=== PATIENT | male | born 1985 | race Caucasian/White ===

== ENCOUNTER 2017-11-07 12:28 | Observation (INO) | payer OTHER ==
[~2017-11-07] VITALS: Ht 185.4 cm; Wt 90.0 kg
[2017-11-07] MEDS ORDERED: GADODIAMIDE PF 287 MG/ML 20 ML VIAL (for RAD MRI) IVCONTRAST ONE (12:29)
[2017-11-07 13:57] VITALS: BP 155/97; PULSE 104; RESP 18; TEMP 97.4; O2SAT 96
[2017-11-07] MEDS ORDERED: [UNRECOGNIZED DRUG - CODE] (14:18)
[2017-11-07 14:24] VITALS: BP 161/91; PULSE 95; RESP 21; O2SAT 97
[2017-11-07] MEDS ORDERED: MORPHINE SULFATE 4 MG/ML INJ IV PUSH ONE (14:30)
[2017-11-07] MEDS ORDERED: ONDANSETRON HCL 4 MG/2 ML VIAL IVP ONE (14:30)
[2017-11-07] MEDS ORDERED: SODIUM CHLOR 0.9% 1000 ML INJ 1,000 ML IV ONE (14:30)
[2017-11-07] MEDS ORDERED: SODIUM CHLORIDE 0.9% FLUSH 10 ML FLUSH IVF PRN (14:30)
--- NOTE | 2017-11-07 14:46 | PD ---
HPI Chief Complaint: Headache Time Seen by Provider: 14:19 Travel History International Travel<30 days: No Contact w/Intl Traveler<30days: No Traveled to known affect area: No History of Present Illness HPI Patient is 32-year-old male presenting to the emergency room for evaluation of a headache. Friend is at bedside and is giving history. He states that they have been driving for 22 hours to come [place]. Patient developed a headache approximately 4 hours ago. Patient states it is frontal, pounding in nature. He took between 10-16 ibuprofen over the last 4 hours, friend states he does not remember events that have occurred since the headaches started. Patient reported feeling dizzy and vomited once. Friend believes he fell and hit his nose. Patient had been fine prior to the headache starting. Patient states he has had headaches like this in the past, and normally ibuprofen alleviates it. Patient does state he recently within the last few days started Accutane PFSH Past Medical History Medical History: Denies Significant Hx Social History Alcohol Use: No Tobacco Use: No Substance Use: No Allergies-Medications (Allergen,Severity, Reaction): Coded Allergies: No Known Allergies (Unverified , 11/07/17) Reported Meds & Prescriptions Reported Meds & Active Scripts Active Reported Accucaine 1 % (Soixgoajc-Iotiajucbjtepmn-Thmm) 10 Mg/Ml (1 %) Inj Review of Systems Except as stated in HPI: all other systems reviewed are Neg Eyes: No: Photophobia, Visual changes HENT: Positive: Headaches, Nosebleed Cardiovascular: No: Chest Pain or Discomfort Respiratory: No: Shortness of Breath Gastrointestinal: Positive: Nausea, Vomiting, No: Abdominal Pain Musculoskeletal: No: Myalgias Neurologic: Positive: Dizziness, Headache, No: Focal Abnormalities, Slurred Speech Physical Exam Narrative GENERAL: Well-developed, well-nourished, alert male. Presenting in no acute distress. SKIN: Warm and dry. HEAD: Atraumatic. Normocephalic. EYES: Pupils equal and round. No scleral icterus. No injection or drainage. Extraocular movements are intact ENT: No nasal bleeding or discharge. Mucous membranes pink and moist. NECK: Trachea midline. No JVD. CARDIOVASCULAR: Mildly tachycardic. RESPIRATORY: No accessory muscle use. Clear to auscultation. Breath sounds equal bilaterally. GASTROINTESTINAL: Abdomen soft, non-tender, nondistended. Hepatic and splenic margins not palpable. MUSCULOSKELETAL: Extremities without clubbing, cyanosis, or edema. No obvious deformities. NEUROLOGICAL: Awake and alert oriented to self, time and place. No obvious cranial nerve deficits. Motor grossly within normal limits. Five out of 5 muscle strength in the arms and legs. Normal speech. PSYCHIATRIC: Appropriate mood and affect; insight and judgment normal. Data Data Last Documented VS Vital Signs Date Time Temp Pulse Resp B/P (MAP) Pulse Ox O2 Delivery O2 Flow Rate FiO2 11/07/17 18:54 103 19 147/90 (109) 98 Room Air 11/07/17 13:57 97.4 Orders Orders Prothrombin Time / Inr (Pt) (11/07/17 14:19) Act Partial Throm Time (Ptt) (11/07/17 14:19) Complete Blood Count With Diff (11/07/17 14:19) Comprehensive Metabolic Panel (11/07/17 14:19) Creatine Kinase (Cpk) (11/07/17 14:19) Ct Brain W/O Iv Contrast(Rout) (11/07/17 14:19) Ecg Monitoring (11/07/17 14:19) Iv Access Insert/Monitor (11/07/17 14:19) Oximetry (11/07/17 14:19) Blood Glucose (11/07/17 14:19) Morphine Inj (Morphine Inj) (11/07/17 14:30) Ondansetron Inj (Zofran Inj) (11/07/17 14:30) Sodium Chloride 0.9% Flush (Ns Flush) (11/07/17 14:30) Sodium Chlor 0.9% 1000 Ml Inj (Ns 1000 M (11/07/17 14:30) Ct Facial Bones W/O Iv Cont (11/07/17 ) Ct Cerv Spine W/O Contrast (11/07/17 ) Morphine Inj (Morphine Inj) (11/07/17 15:15) Mri Brain W&W/O Contrast (11/07/17 ) Dexamethasone Inj (Decadron Inj) (11/07/17 16:15) Morphine Inj (Morphine Inj) (11/07/17 16:15) Gadodiamide Pf Inj (Omniscan Pf Inj) (11/07/17 12:29) Alprazolam (Xanax) (11/07/17 19:00) Admit Order (Ed Use Only) (11/07/17 20:01) Labs Laboratory Tests Test 11/07/17 14:20 White Blood Count 11.6 TH/MM3 Red Blood Count 5.03 MIL/MM3 Hemoglobin 16.7 GM/DL Hematocrit 47.3 % Mean Corpuscular Volume 93.9 FL Mean Corpuscular Hemoglobin 33.2 PG Mean Corpuscular Hemoglobin Concent 35.4 % Red Cell Distribution Width 12.2 % Platelet Count 238 TH/MM3 Mean Platelet Volume 8.3 FL Neutrophils (%) (Auto) 73.7 % Lymphocytes (%) (Auto) 18.0 % Monocytes (%) (Auto) 7.0 % Eosinophils (%) (Auto) 0.3 % Basophils (%) (Auto) 1.0 % Neutrophils # (Auto) 8.5 TH/MM3 Lymphocytes # (Auto) 2.1 TH/MM3 Monocytes # (Auto) 0.8 TH/MM3 Eosinophils # (Auto) 0.0 TH/MM3 Basophils # (Auto) 0.1 TH/MM3 CBC Comment DIFF FINAL Differential Comment Prothrombin Time 10.0 SEC Prothromb Time International Ratio 1.0 RATIO Activated Partial Thromboplast Time 24.2 SEC Blood Urea Nitrogen 13 MG/DL Creatinine 1.00 MG/DL Random Glucose 117 MG/DL Total Protein 8.3 GM/DL Albumin 4.6 GM/DL Calcium Level 9.4 MG/DL Alkaline Phosphatase 60 U/L Aspartate Amino Transf (AST/SGOT) 31 U/L Alanine Aminotransferase (ALT/SGPT) 60 U/L Total Bilirubin 0.5 MG/DL Sodium Level 137 MEQ/L Potassium Level 3.7 MEQ/L Chloride Level 100 MEQ/L Carbon Dioxide Level 27.2 MEQ/L Anion Gap 10 MEQ/L Estimat Glomerular Filtration Rate 86 ML/MIN Total Creatine Kinase 178 U/L [facility] Medical Decision Making Medical Screen Exam Complete: Yes Emergency Medical Condition: Yes Interpretation(s) Vital Signs Date Time Temp Pulse Resp B/P (MAP) Pulse Ox O2 Delivery O2 Flow Rate FiO2 11/07/17 14:24 95 21 161/91 (114) 97 Room Air 11/07/17 13:57 97.4 104 18 155/97 (116) 96 Differential Diagnosis Headache versus hemorrhage versus metabolic abnormality versus medication side effect versus mass versus other Narrative Course Patient is well-appearing 32-year-old male presented for evaluation of a headache that started 4 hours prior to arrival. Patient denies any significant past medical history but states he started Accutane recently. Patient's vital signs are stable. Labs and imaging ordered and pending. CBC with a white count of 11.6 with slight left shift Chemistry with no acute findings CT scan of the head shows ill-defined hypodensity and mass-effect at the medial frontal lobes extending into the corpus callosum and crossing the genu of the corpus callosum. Mass-effect on the lateral ventricles and effacement of the basal cisterns. Findings are suspicious for primary intracranial neoplasm such as a glioblastoma or primary [employer] lymphoma. Less likely possibility would be a tumefactive demyelinating disorder. MRI of brain with and without contrast is recommended, this has been ordered. Patient has been made aware of findings and current treatment plan. Decadron 10 mg IV ordered. Findings were discussed with my attending physician. MRI which is read by the radiologist shows mildly enhancing mass in both frontal lobes, larger on the right measuring 3.8 cm and up to 1.6 cm on the left. The mass extends across the corpus callosum which is markedly thickened and edematous and there is surrounding vasogenic edema more severe on the right side. There is effacement of the lateral ventricles and mild ventricular enlargement. 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 Other etiologies are not excluded. Findings were also reviewed by my attending physician who informed patient of findings. Neurosurgery has been paged. Dr. Shields evaluated patient and discussed findings with him and room. Patient is agreeable to overnight stay. Admit orders placed. Patient reports improvement in his symptoms after administration of Decadron and morphine. He was given Xanax after he was initially notified of the test results as he appeared very anxious and tearful. He is currently resting comfortably, his friends are at the bedside. His is on her way back from a cruise. Diagnosis Primary Impression: Brain tumor Admitting Information Admitting Physician Requests: Observation Condition: Stable [facility] Nov 07, 2017 14:46
[2017-11-07] MEDS ORDERED: MORPHINE SULFATE 2 MG/ML INJ IV PUSH ONE ×2 (15:15→16:15)
[2017-11-07 15:21] LABS: AUTOMATED NEUTROPHIL # 8.5 TH/MM3 (1.8-7.7); BASOPHIL # 0.1 TH/MM3 (0-0.2); EOSINOPHIL % 0.3 % (0.0-4.0); HEMATOCRIT 47.3 % (39.0-51.0); HEMOGLOBIN 16.7 GM/DL (13.0-17.0); LYMPHOCYTE # 2.1 TH/MM3 (1.0-4.8); MEAN CELL VOLUME 93.9 FL (80.0-100.0); MEAN CORPUSCULAR HEMOGLOBIN 33.2 PG (27.0-34.0); MEAN CORPUSCULAR HGB CONC 35.4 % (32.0-36.0); MEAN PLATELET VOLUME 8.3 FL (7.0-11.0); MONOCYTE # 0.8 TH/MM3 (0-0.9); NEUT % 73.7 % (16.0-70.0); PLATELET COUNT 238 TH/MM3 (150-450); RED BLOOD COUNT 5.03 MIL/MM3 (4.50-5.90); RED CELL DISTRIBUTION WIDTH 12.2 % (11.6-17.2); WHITE BLOOD COUNT 11.6 TH/MM3 (4.0-11.0)
[2017-11-07 15:45] LABS: ALKALINE PHOSPHATASE 60 U/L (45-117); TOTAL BILIRUBIN ADULT 0.5 MG/DL (0.2-1.0); TOTAL PROTEIN 8.3 GM/DL (6.4-8.2)
[2017-11-07 15:48] LABS: ALBUMIN 4.6 GM/DL (3.4-5.0); ALT (GPT) 60 U/L (12-78); AST (GOT) 31 U/L (15-37); BICARBONATE 27.2 MEQ/L (21.0-32.0); BLOOD UREA NITROGEN 13 MG/DL (7-18); CALCIUM 9.4 MG/DL (8.5-10.1); CHLORIDE 100 MEQ/L (98-107); GLOMERULAR FILTRATION RATE 86 ML/MIN (>89); GLUCOSE,RANDOM 117 MG/DL (74-106); SODIUM (NA) 137 MEQ/L (136-145)
--- NOTE | 2017-11-07 16:12 | RADRPT ---
EXAM DATE/TIME: 11/07/2017 15:41 [facility] COMPARISON: CT FACIAL BONES W/O CONTRAST, November 07, 2017, 15:41. INDICATIONS : Cephalgia; no injury. RADIATION DOSE: 56.35 CTDIvol (mGy) MEDICAL HISTORY : None SURGICAL HISTORY : None. ENCOUNTER: Initial ACUITY: 1 day PAIN SCALE: 8/10 LOCATION: cranial TECHNIQUE: Multiple contiguous axial images were obtained of the head. Using automated exposure control and adj ustment of the mA and/or kV according to patient size, radiation dose was kept as low as reasonably a chievable to obtain optimal diagnostic quality images. DICOM format image data is available electro nically for review and comparison. FINDINGS: CEREBRUM: There is hypodensity and mass effect centered at the body of the corpus callosum extending into the f rontal lobes bilaterally. Mass effect on the lateral ventricles is seen. Mild right to left midline s hift measuring 5-6 mm. No evidence of acute intracranial hemorrhage or extra-axial fluid collection. There is effacement of the basal cisterns. POSTERIOR FOSSA: The cerebellum and brainstem are intact. The 4th ventricle is midline. The cerebellopontine angle i s unremarkable. EXTRACRANIAL: The visualized portion of the orbits is intact. SKULL: The calvaria is intact. No evidence of skull fracture. CONCLUSION: Ill-defined hypodensity and mass effect at the medial frontal lobes extending into the corpus callosu m and crossing the genu of the corpus callosum. Mass effect on the lateral ventricles and effacement of the basal cisterns. Findings are suspicious for primary intracranial neoplasm such as glioblastoma or primary [employer] lymphoma. Less likely possibility would be tumefactive demyelinating disorder. MRI br ain with and without contrast is recommended. Mike Goins MD on November 07, 2017 at 15:58 Board Certified Radiologist. This report was verified electronically.
--- NOTE | 2017-11-07 16:13 | RADRPT ---
EXAM DATE/TIME: 11/07/2017 15:41 [facility] COMPARISON: CT BRAIN W/O CONTRAST, November 07, 2017, 15:41. INDICATIONS : Cephalgia; no injury. RADIATION DOSE: 26.35 CTDIvol (mGy) MEDICAL HISTORY : None SURGICAL HISTORY : None. ENCOUNTER: Initial ACUITY: 1 day PAIN SCORE: 5/10 LOCATION: Bilateral facial TECHNIQUE: Volumetric scanning of the facial bones was performed. Using automated exposure control and adjustme nt of the mA and/or kV according to patient size, radiation dose was kept as low as reasonably achiev able to obtain optimal diagnostic quality images. DICOM format image data is available electronicRosum y for review and comparison. FINDINGS: ORBITS: The orbital and infraorbital osseous structures are intact. The retroconal structures have a normal configuration. No radiopaque foreign bodies are seen. NASAL BONE: The nasal bone and maxillary spine are intact ZYGOMATIC ARCHES: Symmetric without evidence of fracture. SINUSES: The maxillary, ethmoid and frontal sinuses are intact. No air-fluid levels seen. NASAL CAVITY: The nasal septum is intact and midline. The lacrimal ducts are intact. SOFT TISSUES: No radiopaque foreign bodies seen. No soft-tissue swelling is seen. INTRACRANIAL: No intracranial air seen. CRIBIFORM PLATE: Grossly intact. CONCLUSION: Facial bones CT within normal limits. Mike Goins MD on November 07, 2017 at 16:10 Board Certified Radiologist. This report was verified electronically.
[2017-11-07] MEDS ORDERED: DEXAMETHASONE SOD PHOS 20 MG/5 ML VIAL IV PUSH ONE (16:15)
--- NOTE | 2017-11-07 16:19 | RADRPT ---
EXAM DATE/TIME: 11/07/2017 15:41 [facility] COMPARISON: No previous studies available for comparison. INDICATIONS : Cephalgia; no injury. RADIATION DOSE: 28.62 CTDIvol (mGy) MEDICAL HISTORY : None SURGICAL HISTORY : None. ENCOUNTER: Initial ACUITY: 1 day PAIN SCALE: 0/10 LOCATION: Bilateral neck TECHNIQUE: Volumetric scanning of the cervical spine was performed. Multiplanar reconstructions in the sagittal, coronal and oblique axial planes were performed. Using automated exposure control and adjustment o f the mA and/or kV according to patient size, radiation dose was kept as low as reasonably achievable to obtain optimal diagnostic quality images. DICOM format image data is available electronically f or review and comparison. FINDINGS: VERTEBRAE: Normal vertebral body height. ALIGNMENT: No evidence of subluxation. C2-C3: The bony spinal canal is normal in size. No evidence of disc bulge or herniation. The neural forami na are bilaterally patent. C3-C4: The bony spinal canal is normal in size. No evidence of disc bulge or herniation. The neural forami na are bilaterally patent. C4-C5: The bony spinal canal is normal in size. No evidence of disc bulge or herniation. The neural forami na are bilaterally patent. C5-C6: The bony spinal canal is normal in size. No evidence of disc bulge or herniation. The neural forami na are bilaterally patent. C6-C7: The bony spinal canal is normal in size. No evidence of disc bulge or herniation. The neural forami na are bilaterally patent. C7-T1: The bony spinal canal is normal in size. No evidence of disc bulge or herniation. The neural forami na are bilaterally patent. CONCLUSION: Cervical spine CT within normal limits. Mike Goins MD on November 07, 2017 at 16:16 Board Certified Radiologist. This report was verified electronically.
--- NOTE | 2017-11-07 18:10 | RADRPT ---
EXAM DATE/TIME: 11/07/2017 17:28 [facility] COMPARISON: No previous studies available for comparison. INDICATIONS : Mass. Cephalgia. CONTRAST: 18 cc Omniscan (gadodiamide) IV MEDICAL HISTORY : None. SURGICAL HISTORY : None. ENCOUNTER: Initial ACUITY: 1 day PAIN SCORE: 0/10 LOCATION: cranial TECHNIQUE: Multiplanar, multisequence MRI of the brain was performed both prior to and following the administrat ion of paramagnetic contrast. FINDINGS: There is a mildly enhancing mass in the right frontal region medially measuring at least 3.8 cm in di ameter. There is surrounding vasogenic edema is also a small component of the mass that extends into the medial left frontal lobe measuring up to 1.6 cm in diameter likely via the markedly thickened cor pus callosum. Pattern is most characteristic of glioblastoma. There is effacement of both lateral kevon tricles and there is mild ventricular enlargement. No evidence for recent infarction. CONCLUSION: 1. Mildly enhancing mass in both frontal lobes, larger on the right side measuring up to 3.8 cm and u p to 1.6 cm on the left side. The mass extends across corpus callosum which is markedly thickened and edematous and there is surrounding vasogenic edema more severe on the right side. There is effacemen t of the lateral ventricles and mild ventricular enlargement. Findings most characteristic of gliobla stoma. Other etiologies not excluded. Kenny Honeycutt MD on November 07, 2017 at 18:03 Board Certified Radiologist. This report was verified electronically.
[2017-11-07 18:54] VITALS: BP 147/90; PULSE 103; RESP 19; O2SAT 98
[2017-11-07] MEDS ORDERED: ALPRAZolam 0.5 MG TAB PO ONE (19:00)
--- NOTE | 2017-11-07 20:20 | HHI.HP ---
[facility] Service Neurosurgery Primary Care Physician Ramone Brown MD Chief Complaint: Headache, nausea, confusion History of Present Illness 32-year-old male complains of a couple weeks of dizziness. He drove with his friends from [place] yesterday and towards the end of the day developed a headache. Last evening when they reached [place], he appeared quite confused. The headache and confusion became worse today and he presented to the emergency room. His friends say that he was confused to the point that he was unable to unload his motorcycle from a trailer. He developed nausea and emesis this afternoon. Since in the emergency room he has received an initial dose of IV Decadron which has rapidly improved the headache and nausea. He reports no recent fevers or chills. No pain weakness or numbness in the extremities. No significant difficulty with ambulation. No blurred vision or diplopia. Review of Systems General: No weight gain or loss or change in appetite. No recent fever, chills or sweats. No generalized fatigue. HEENT: No sore throat. No sinus congestion or drainage. No headaches. No hearing loss or tinnitus, blurred vision, diplopia, facial pain, weakness or numbness, or difficulty swallowing. Cardiovascular: No chest pain, palpations Pulmonary: No shortness of breath or productive cough. Gastrointestinal: Positive nausea and emesis today. No abdominal diarrhea, constipation. No gastroesophageal reflux. No problems with jaundice, ulcers, diverticulitis : No blood in the urine. No dysuria. No urinary urgency or incontinence. Integumentary: No skin lesions or rash. Neurologic: Positive recent greater than remote memory loss. Difficulty with concentration. No difficulty with ambulation. No weakness or numbness in the extremities. Psychiatric: No anxiety or depression. Endocrine: No excessive thirst or urination, heat or cold tolerance. Hematologic: No significant bleeding or clotting disorder. No chronic anemia. Musculoskeletal: No complaint of significant joint pain, arthritis, muscular pain. Past Family Social History Allergies: Coded Allergies: No Known Allergies (Unverified , 11/07/17) Past Medical History No history of cardiac disease, diabetes, hypertension, hypercholesterolemia, gastrointestinal disease Past Surgical History No major surgeries reported Reported Medications Reported Meds & Active Scripts Active Reported Accucaine 1 % (Cyolodxnj-Slfllswricredvu-Ywij) 10 Mg/Ml (1 %) Inj Family History History of diabetes. History of cancer-he is unsure what type and exactly which family members Social History He previously smoked 1 pack cigarettes a day up until 1-2 years ago. No significant alcohol use. Denies illicit drug use Physical Exam Vital Signs Vital Signs Date Time Temp Pulse Resp B/P (MAP) Pulse Ox O2 Delivery O2 Flow Rate FiO2 11/07/17 18:54 103 19 147/90 (109) 98 Room Air 11/07/17 14:24 95 21 161/91 (114) 97 Room Air 11/07/17 13:57 97.4 104 18 155/97 (116) 96 Physical Exam GENERAL: This is a well-nourished, well-developed patient, no apparent distress. SKIN: No abrasions, contusion, rash noted. Skin warm and dry. HEAD: Atraumatic. Normocephalic. No temporal or scalp tenderness. EYES: Sclerae are clear and nonicteric ENT: No facial edema or ecchymosis. No periorbital edema. No CSF otorrhea or rhinorrhea. No palpable facial fracture or deformity. NECK: Trachea midline. No cervical spine tenderness. CARDIOVASCULAR: Regular rate and rhythm without murmurs, gallops, or rubs. RESPIRATORY: Clear to auscultation. Breath sounds equal bilaterally. No wheezes , rales, or rhonchi. GASTROINTESTINAL: Abdomen soft, non-tender, nondistended. No hepato-splenomegaly , or palpable masses. No guarding. MUSCULOSKELETAL: Extremities without cyanosis, or edema. No joint tenderness, or edema noted. No calf tenderness. Dorsalis pedis pulses 2+ bilateral NEUROLOGICAL: Awake and alert Oriented X person, month, hospital Speech is clear, slightly hesitant Conversant a little with some difficulty with processes Follow simple commands well Answers questions appropriately Reasonable judgment and insight Recent and remote memory are moderately impaired No evidence of anxiety or depression Pupils are equal and reactive to accommodation. Extra-ocular movements, visual choudhury to confrontation, facial sensorimotor, tongue, palate, sternocleidomastoid testing, hearing to finger rub testing, and bilateral shoulder shrug are all intact. Sensation is intact to light touch in all extremities Strength normal major flexion and extension groups all extremities Monika's absent bilaterally No ankle clonus Plantar responses absent bilateral Fine motor movements intact upper extremities His gait is normal Tandem gait normal Romberg test negative Laboratory Laboratory Tests Test 11/07/17 14:20 White Blood Count 11.6 Red Blood Count 5.03 Hemoglobin 16.7 Hematocrit 47.3 Mean Corpuscular Volume 93.9 Mean Corpuscular Hemoglobin 33.2 Mean Corpuscular Hemoglobin Concent 35.4 Red Cell Distribution Width 12.2 Platelet Count 238 Mean Platelet Volume 8.3 Neutrophils (%) (Auto) 73.7 Lymphocytes (%) (Auto) 18.0 Monocytes (%) (Auto) 7.0 Eosinophils (%) (Auto) 0.3 Basophils (%) (Auto) 1.0 Neutrophils # (Auto) 8.5 Lymphocytes # (Auto) 2.1 Monocytes # (Auto) 0.8 Eosinophils # (Auto) 0.0 Basophils # (Auto) 0.1 CBC Comment DIFF FINAL Differential Comment Prothrombin Time 10.0 Prothromb Time International Ratio 1.0 Activated Partial Thromboplast Time 24.2 Blood Urea Nitrogen 13 Creatinine 1.00 Random Glucose 117 Total Protein 8.3 Albumin 4.6 Calcium Level 9.4 Alkaline Phosphatase 60 Aspartate Amino Transf (AST/SGOT) 31 Alanine Aminotransferase (ALT/SGPT) 60 Total Bilirubin 0.5 Sodium Level 137 Potassium Level 3.7 Chloride Level 100 Carbon Dioxide Level 27.2 Anion Gap 10 Estimat Glomerular Filtration Rate 86 Total Creatine Kinase 178 Result Diagram: 11/07/17 1420 11/07/17 1420 Imaging 11/07/2017 CT scan head and cervical spine as well as MRI brain images have all been reviewed by the undersigned. Agree with findings as noted below: Head CT 11/07/17 1419 Signed Impressions: Service Date/Time: Tuesday, November 07, 2017 15:41 - CONCLUSION: Ill-defined hypodensity and mass effect at the medial frontal lobes extending into the corpus callosum and crossing the genu of the corpus callosum. Mass effect on the lateral ventricles and effacement of the basal cisterns. Findings are suspicious for primary intracranial neoplasm such as glioblastoma or primary COMMUNITY NURSE lymphoma. Less likely possibility would be tumefactive demyelinating disorder. MRI brain with and without contrast is recommended. Mike Goins MD Maxillofacial CT 11/07/17 0000 Signed Impressions: Service Date/Time: Tuesday, November 07, 2017 15:41 - CONCLUSION: Facial bones CT within normal limits. Mike Goins MD Cervical Spine CT 11/07/17 0000 Signed Impressions: Service Date/Time: Tuesday, November 07, 2017 15:41 - CONCLUSION: Cervical spine CT within normal limits. Mike Goins MD Brain MRI 11/07/17 0000 Signed Impressions: Service Date/Time: Tuesday, November 07, 2017 17:28 - CONCLUSION: 1. Mildly enhancing mass in both frontal lobes, larger on the right side measuring up to 3.8 cm and up to 1.6 cm on the left side. The mass extends across corpus callosum which is markedly thickened and edematous and there is surrounding vasogenic edema more severe on the right side. There is effacement of the lateral ventricles and mild ventricular enlargement. Findings most characteristic of glioblastoma. Other etiologies not excluded. Kenny Honeycutt MD Capmarilou VTE Risk Assessment Caprini VTE Risk Assessment: No/Low Risk (score <= 1) Caprini Risk Assessment Model Point Value = 1 Point Value = 2 Point Value = 3 Point Value = 5 Age 41-60 Minor surgery BMI > 25 kg/m2 Swollen legs Varicose veins or History of unexplained or recurrent spontaneous Oral contraceptives or hormone replacement Sepsis (< 1 month) Serious lung disease, including pneumonia (< 1 month) Abnormal pulmonary function Acute myocardial infarction Congestive heart failure (< 1 month) History of inflammatory bowel disease Medical patient at bed rest Age 61-74 Arthroscopic surgery Major open surgery (> 45 min) Laparoscopic surgery (> 45 min) Malignancy Confined to bed (> 72 hours) Immobilizing plaster cast Central venous access Age >= 75 History of VTE Family history of VTE Factor V Leiden Prothrombin [id number] Lupus anticoagulant Anticardiolipin antibodies Elevated serum homocysteine Heparin-induced thrombocytopenia Other congenital or acquired thrombophilia Stroke (< 1 month) Elective arthroplasty Hip, pelvis, or leg fracture Acute spinal cord injury (< 1 month) Prophylaxis Regimen Total Risk Factor Score Risk Level Prophylaxis Regimen 0-1 Low Early ambulation 2 Moderate Order ONE of the following: *Sequential Compression Device (SCD) *Heparin 5000 units SQ BID 3-4 Higher Order ONE of the following medications: *Heparin 5000 units SQ TID *Enoxaparin/Lovenox 40 mg SQ daily (WT < 150 kg, CrCl > 30 mL/min) *Enoxaparin/Lovenox 30 mg SQ daily (WT < 150 kg, CrCl > 10-29 mL/min) *Enoxaparin/Lovenox 30 mg SQ BID (WT < 150 kg, CrCl > 30 mL/min) AND/OR *Sequential Compression Device (SCD) 5 or more Highest Order ONE of the following medications: *Heparin 5000 units SQ TID (Preferred with Epidurals) *Enoxaparin/Lovenox 40 mg SQ daily (WT < 150 kg, CrCl > 30 mL/min) *Enoxaparin/Lovenox 30 mg SQ daily (WT < 150 kg, CrCl > 10-29 mL/min) *Enoxaparin/Lovenox 30 mg SQ BID (WT < 150 kg, CrCl > 30 mL/min) AND *Sequential Compression Device (SCD) Assessment and Plan Assessment and Plan Impression: 1. Bifrontal lesion with involvement of the anterior corpus callosum. 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 He will be admitted for initial observation. Intravenous steroids will be continued along with medications for pain and nausea. Follow-up electrolytes/sodium in a.m. Ulcer prophylaxis If he clinically improves, he would like to try to travel back with his friends to [place] for further treatment. He understands that he will require a brain biopsy for initial diagnosis. Vivek Shields MD Nov 07, 2017 20:20
[2017-11-07] MEDS ORDERED: NALOXONE HCL 0.4 MG/ML AMP IV PUSH PRN (20:30)
[2017-11-07] MEDS ORDERED: ACETAMINOPHEN/HYDROcodone 325 MG/5 MG TAB PO PRN (20:30)
[2017-11-07] MEDS ORDERED: ALUMINUM/MAGNESIUM/SIMETH 30 ML CUP PO PRN (20:30)
[2017-11-07] MEDS ORDERED: ACETAMINOPHEN/HYDROcodone 325 MG/10 MG TAB PO PRN (20:30)
[2017-11-07] MEDS ORDERED: MORPHINE SULFATE 2 MG/ML INJ IV PUSH PRN (20:30)
[2017-11-07] MEDS: SODIUM CHLORIDE 1 GRAM TAB PO SCH (22:38)
[2017-11-08 00:25] VITALS: BP 140/87; PULSE 116; RESP 18; TEMP 98; O2SAT 94
[2017-11-08] MEDS: DEXAMETHASONE SOD PHOS 4 MG/ML VIAL IV PUSH SCH ×4 (00:32→18:10)
[2017-11-08 04:00] VITALS: BP 129/68; PULSE 72; RESP 18; TEMP 98.3; O2SAT 98
[2017-11-08 07:52] LABS: CALCIUM 9.4 MG/DL (8.5-10.1); CREATININE 0.97 MG/DL (0.60-1.30)
[2017-11-08 08:25] VITALS: BP 128/62; PULSE 68; RESP 18; TEMP 97.9; O2SAT 97
[2017-11-08] MEDS ORDERED: PANTOPRAZOLE SOD 40 MG DELAYED RELEASE TAB PO SCH (09:00)
[2017-11-08] MEDS: SODIUM CHLORIDE 1 GRAM TAB PO SCH (09:17)
[2017-11-08 11:55] VITALS: BP 162/74; PULSE 100; RESP 20; TEMP 98.9; O2SAT 98
[2017-11-08] MEDS ORDERED: DEXA4TAB PO (17:17)
[2017-11-08] MEDS ORDERED: ZANT150T2 PO (17:17)
--- NOTE | 2017-11-08 17:20 | HHI.DCPOC ---
Discharge Care Plan Diagnosis: (1) Brain tumor Your Health Problems Are: Difficulty with ADL Difficulty with Speech Goals to Promote Your Health * To prevent worsening of your condition and complications * To maintain your health at the optimal level Directions to Meet Your Goals Take your medications as prescribed Follow your dietary instruction Follow activity as directed Keep your appointments as scheduled Take your immunizations and boosters as scheduled If your symptoms worsen call your PCP, if no PCP go to Urgent Care Center or Emergency Room Smoking is Dangerous to Your Health. Avoid second hand smoke Call the 24-hour hour crisis hotline for domestic abuse at Vivek Shields MD Nov 08, 2017 17:20
--- NOTE | 2017-11-08 17:23 | HHI.DS ---
Discharge Summary Admission Date Nov 07, 2017 at 20:03 Discharge Date: Nov 08, 2017 Admitting Diagnosis BRAIN TUMOR (1) Brain tumor Diagnosis: Principal ICD Code: D49.6 - Neoplasm of unspecified behavior of brain Status: Acute Brief History 32-year-old male complains of a couple weeks of dizziness. He drove with his friends from [place] yesterday and towards the end of the day developed a headache. Last evening when they reached [place], he appeared quite confused. The headache and confusion became worse today and he presented to the emergency room. His friends say that he was confused to the point that he was unable to unload his motorcycle from a trailer. He developed nausea and emesis this afternoon. Since in the emergency room he has received an initial dose of IV Decadron which has rapidly improved the headache and nausea. He reports no recent fevers or chills. No pain weakness or numbness in the extremities. No significant difficulty with ambulation. No blurred vision or diplopia. CBC/BMP: 11/07/17 1420 11/08/17 0440 Significant Findings Laboratory Tests Test 11/07/17 14:20 11/08/17 04:40 White Blood Count 11.6 TH/MM3 (4.0-11.0) Neutrophils (%) (Auto) 73.7 % (16.0-70.0) Neutrophils # (Auto) 8.5 TH/MM3 (1.8-7.7) Activated Partial Thromboplast Time 24.2 SEC (24.3-30.1) Random Glucose 117 MG/DL (74-106) 160 MG/DL (74-106) Total Protein 8.3 GM/DL (6.4-8.2) Estimat Glomerular Filtration Rate 86 ML/MIN (>89) Imaging Last Impressions Head CT 11/07/17 1419 Signed Impressions: Service Date/Time: Tuesday, November 07, 2017 15:41 - CONCLUSION: Ill-defined hypodensity and mass effect at the medial frontal lobes extending into the corpus callosum and crossing the genu of the corpus callosum. Mass effect on the lateral ventricles and effacement of the basal cisterns. Findings are suspicious for primary intracranial neoplasm such as glioblastoma or primary [employer] ATTENDANT lymphoma. Less likely possibility would be tumefactive demyelinating disorder. MRI brain with and without contrast is recommended. Mike Goins MD Maxillofacial CT 11/07/17 0000 Signed Impressions: Service Date/Time: Tuesday, November 07, 2017 15:41 - CONCLUSION: Facial bones CT within normal limits. Mike Goins MD Cervical Spine CT 11/07/17 0000 Signed Impressions: Service Date/Time: Tuesday, November 07, 2017 15:41 - CONCLUSION: Cervical spine CT within normal limits. Mike Goins MD Brain MRI 11/07/17 Signed Impressions: Service Date/Time: Tuesday, November 07, 2017 17:28 - CONCLUSION: 1. Mildly enhancing mass in both frontal lobes, larger on the right side measuring up to 3.8 cm and up to 1.6 cm on the left side. The mass extends across corpus callosum which is markedly thickened and edematous and there is surrounding vasogenic edema more severe on the right side. There is effacement of the lateral ventricles and mild ventricular enlargement. Findings most characteristic of glioblastoma. Other etiologies not excluded. Kenny Honeycutt MD Hospital Course Admitted with MRI results as above. Improved with IV decadron Stable exam on discharge with F/U with NS at home Pt Condition on Discharge: Stable Discharge Disposition: Discharge Home Discharge Instructions DIET: Follow Instructions for: As Tolerated, No Restrictions ACTIVITIES You can perform: Weight Bearing [place] Activities to Avoid: Strenuous Activity, Driving New Medications: Dexamethasone (Dexamethasone) 4 Mg Tab 4 MG PO Q8HR for Inflammation, #30 TAB 0 Refills Ranitidine (Zantac) 150 Mg Tab 150 MG PO BID for Reduce Stomach Acid for 30 Days, #60 TAB 0 Refills Continued Medications: [id number]-Gtwh (Accucaine 1 %) 10 Mg/Ml (1 %) Inj Vivek Shields MD Nov 08, 2017 17:23
== END 2017-11-08 19:23 | disposition home or self-care (01) ==
LOC: NEPE 12:28 → NEDA 20:03 → NEPGCP 21:28
PROVIDERS: ADMIT Neurological Surgery; ATTEND Neurological Surgery
DX: C71.9 Malignant neoplasm of brain, unspecified (principal); G93.6 Cerebral edema; Z87.891 Personal history of nicotine dependence
CPT/HCPCS: 70450; 70486; 70553; 72125; 80048; 80053; 82550; 85025; 85610; 85730; 94150; 96374; 96375; 96376; 99285; A9579; G0378; J1100; J2270; J2405; J7030